=== PATIENT | male | born 1930 | race Caucasian/White ===

== ENCOUNTER 2016-07-16 09:23 | Observation (INO) | payer OTHER ==
[~2016-07-16] VITALS: Ht 175.3 cm; Wt 101.9 kg
[~2016-07-16 09:23] MED LIST: ACETAMINOPHEN500 MG PO; ATENOLOL50 M1 NG; ATENOLOL50 MG PO; AUGMENTIN875 MG PO; CEFDINIR300 MG PO; CRESTOR20 MG PO; CYANOCOBALAM1000 MCG PO; CYMBALTA60 MG PO; Cymbalta PO; DIOVAN160 MG PO; ECOTRIN325 MG PO; FLOMAX0.4 MG PO; Flomax PO; GLIPIZIDE XL10 MG PO; GLIPIZIDE10 M1 PO; GLIPIZIDE10 MG PO; HYDROCHLOROTH12.5 M1 PO; HYDROCHLOROTH12.5 M3 PO; IRBESARTAN300 MG PO; LANTUS (UNITS)1 UNIT SQ; LANTUS 10100 UNITS/ SC; LEVEMIR100 UNIT/2 SC; MYRBETRIQ50 MG PO; NORVASC5 MG PO; NOVOLOG 10100 UNITS/ SC; PLAVIX75 MG PO; PRILOSEC OTC20 MG PO; PRILOSEC10 MG PO; PROSCAR5 MG PO; Proscar PO; Tenormin PO; XELODA500 MG PO; ZOFRAN4 MG PO
[2016-07-16 10:28] LABS: HEMATOCRIT 48.2 % (38.0-50.0); MCH 26.9 PG (29.0-34.0); MCV 84.1 FL (86-99); MEAN PLAT.VOLUME 9.4 uM^3 (9.0-12.4); PLATELET COUNT 265 K/uL (156-360); RBC DIS.WIDTH-CV 15.3 % (11.8-14.6); RBC DIS.WIDTH-SD 46.8 % (39-53); RED BLOOD COUNT 5.73 M/uL (4.00-5.50); WHITE BLOOD COUNT 11.9 K/uL (4.1-10.2)
[2016-07-16 10:38] LABS: CHLORIDE 100 mEq/L (99-109); POTASSIUM 4.2 mEq/L (3.7-5.4); SODIUM 136 mEq/L (136-147)
[2016-07-16 10:40] LABS: GLUCOSE 191 mg/dL (70-99)
[2016-07-16 10:41] LABS: ANION GAP 12 MEQ/L (2-14)
[2016-07-16 10:44] LABS: GFR ESTIMATE (CALCULATED) > 59 mL/min/
[2016-07-16 10:45] LABS: UREA NITROGEN (BUN) 24 mg/dL (9-23)
[2016-07-16 10:48] LABS: TROP-I INTERPRETATION NEGATIVE; TROPONIN-I 0.02 ng/mL (0.0-0.30)
[2016-07-16 11:56] VITALS: BP 162/74
[2016-07-16] MEDS ORDERED: GLUCOTROL10 MG PO (12:55)
[2016-07-16] MEDS ORDERED: GLIPIZIDE XL10 MG PO (15:05)
[2016-07-16 15:34] VITALS: BP 155/76
[2016-07-16 16:11] VITALS: BP 105/51
[2016-07-16 17:00] LABS: POINT-OF-CARE METER ID UU13113700
[2016-07-16 18:51] LABS: TROP-I INTERPRETATION NEGATIVE; TROPONIN-I 0.03 ng/mL (0.0-0.30)
[2016-07-16 21:21] LABS: POINT-OF-CARE METER ID UU13113700
[2016-07-17] VITALS: BP 143/74
[2016-07-17 01:49] LABS: TROP-I INTERPRETATION NEGATIVE; TROPONIN-I 0.02 ng/mL (0.0-0.30)
[2016-07-17 04:20] VITALS: BP 182/97
[2016-07-17 06:33] LABS: HEMATOCRIT 44.3 % (38.0-50.0); MCH 27.6 PG (29.0-34.0); MCHC 32.1 G/DL (30.0-36.0); MEAN PLAT.VOLUME 9.8 uM^3 (9.0-12.4); PLATELET COUNT 235 K/uL (156-360); RBC DIS.WIDTH-CV 15.5 % (11.8-14.6); RBC DIS.WIDTH-SD 48.5 % (39-53); RED BLOOD COUNT 5.15 M/uL (4.00-5.50); WHITE BLOOD COUNT 9.3 K/uL (4.1-10.2)
[2016-07-17 07:48] VITALS: BP 135/63
[2016-07-17] MEDS ORDERED: BENZONATATE100 MG PO (07:56)
[2016-07-17] MEDS ORDERED: AZITHROMYCIN500 M1 PO (07:56)
[2016-07-17] MEDS ORDERED: CEFTIN500 MG PO (07:57)
[2016-07-17 08:05] LABS: POINT-OF-CARE METER ID UU13113831
[2016-07-17] MEDS ORDERED: ZOFRAN ODT4 MG PO (10:47)
== END 2016-07-17 13:18 | disposition home or self-care (01) ==
LOC: EME 09:23 → EDOF 10:55 → 5WEST 11:45
PROVIDERS: Internal Medicine
DX: R07.9 Chest pain, unspecified (principal); R05 Cough; R11.2 Nausea with vomiting, unspecified; R29.6 Repeated falls; R26.2 Difficulty in walking, not elsewhere classified; I25.10 Atherosclerotic heart disease of native coronary artery without angina pectoris; E11.40 Type 2 diabetes mellitus with diabetic neuropathy, unspecified; I44.0 Atrioventricular block, first degree; E78.5 Hyperlipidemia, unspecified; I10 Essential (primary) hypertension; F32.9 Major depressive disorder, single episode, unspecified; R32 Unspecified urinary incontinence; K21.9 Gastro-esophageal reflux disease without esophagitis; I45.10 Unspecified right bundle-branch block; N40.1 Benign prostatic hyperplasia with lower urinary tract symptoms; I25.2 Old myocardial infarction; Z86.73 Personal history of transient ischemic attack (TIA), and cerebral infarction without residual deficits; Z87.891 Personal history of nicotine dependence; Z79.4 Long term (current) use of insulin; Z95.1 Presence of aortocoronary bypass graft; Z95.5 Presence of coronary angioplasty implant and graft; Z85.038 Personal history of other malignant neoplasm of large intestine
CPT/HCPCS: 71020; 80048; 82948; 84484; 85027; 87040; 87070; 87205; 93005; 94799; 99281; 99285; G0378; G8987 GO CM; G8988 GO CL; J0696; J1650; J7030; J7050

== ENCOUNTER 2016-08-12 16:03 | Inpatient (IN) | payer OTHER ==
[~2016-08-12] VITALS: Ht 175.3 cm; Wt 100.6 kg
[~2016-08-12 16:03] MED LIST changes: +AZITHROMYCIN500 M1 PO; +BENZONATATE100 MG PO; +CEFTIN500 MG PO; +GLUCOTROL10 MG PO; +ZOFRAN ODT4 MG PO
[2016-08-12 17:46] LABS: BASOPHIL COUNT 0.1 K/uL (0-0.1); EOSINOPHIL (%) 1.2 % (0-5); EOSINOPHIL COUNT 0.1 K/uL (0-0.3); HEMATOCRIT 45.3 % (38.0-50.0); IMMATURE GRANULOCYTE (%) 0.5 % (0.0-0.7); IMMATURE GRANULOCYTE COUNT 0.1 K/uL; LYMPHOCYTE COUNT 2.3 K/uL (1.0-2.8); MCH 27.1 PG (29.0-34.0); MCHC 31.8 G/DL (30.0-36.0); MCV 85.3 FL (86-99); MEAN PLAT.VOLUME 9.4 uM^3 (9.0-12.4); MONOCYTE (%) 10.4 % (3-12); MONOCYTE COUNT 1.1 K/uL (0-0.8); NEUTROPHIL (%) 65.9 % (45-76); PLATELET COUNT 208 K/uL (156-360); RBC DIS.WIDTH-CV 17.2 % (11.8-14.6); RBC DIS.WIDTH-SD 53.2 % (39-53); RED BLOOD COUNT 5.31 M/uL (4.00-5.50); WHITE BLOOD COUNT 10.7 K/uL (4.1-10.2)
[2016-08-12 17:56] LABS: CHLORIDE 104 mEq/L (99-109); POTASSIUM 3.7 mEq/L (3.7-5.4); SODIUM 139 mEq/L (136-147)
[2016-08-12 17:57] LABS: POINT-OF-CARE METER ID UU14100415
[2016-08-12 17:58] LABS: GLUCOSE 138 mg/dL (70-99)
[2016-08-12 17:59] LABS: ANION GAP 10 MEQ/L (2-14)
[2016-08-12 18:00] LABS: TOTAL BILIRUBIN 1.1 mg/dL (0.0-1.0)
[2016-08-12 18:02] LABS: ALKALINE PHOSPHATASE 307 IU/L (3-129); GFR ESTIMATE (CALCULATED) > 59 mL/min/
[2016-08-12 18:03] LABS: UREA NITROGEN (BUN) 20 mg/dL (9-23)
[2016-08-12 18:05] LABS: CREATINE KINASE 36 IU/L (1-294); TOTAL CK 36 IU/L (1-294)
[2016-08-12 18:07] LABS: TROP-I INTERPRETATION NEGATIVE; TROPONIN-I < 0.01 ng/mL (0.0-0.30)
[2016-08-12 18:11] LABS: ADD MIUA? YES; BILIRUBIN NEGATIVE; BLOOD NEGATIVE; COLOR AMBER ((YELLOW)); GLUCOSE (STRIP) NEGATIVE; KETONES NEGATIVE; LEUKOCYTES NEGATIVE; NITRITE NEGATIVE; PROTEIN (STRIP) >=500; SPECIFIC GRAVITY 1.019 (1.000-1.030)
[2016-08-12 18:20] LABS: BACTERIA RARE /HPF; EPITHELIAL CELLS RARE /HPF; GRANULAR CASTS 0-5 /LPF; HYALINE CASTS 0-5 /LPF; MUCUS TRACE /LPF; RED BLOOD CELLS 40-50 /HPF (0-5); UCUL ADDED? NO
[2016-08-12 18:57] LABS: C-REACTIVE PROTEIN 31.7 MG/L (0-10); SAMPLE HEMOLYSIS CHECK 0; SAMPLE ICTERIC CHECK 0; SAMPLE LIPEMIA CHECK 0
[2016-08-12 19:01] LABS: ERTH.SED.RATE 79 MM/HR (0-20)
[2016-08-12] MEDS ORDERED: PROBIOTIC-10 370 MG PO (20:30)
[2016-08-12] MEDS ORDERED: NEXIUM40 MG PO (20:30)
[2016-08-13 02:56] VITALS: BP 123/62
[2016-08-13 06:59] LABS: HEMATOCRIT 41.8 % (38.0-50.0); MCHC 32.3 G/DL (30.0-36.0); MCV 86.5 FL (86-99); MEAN PLAT.VOLUME 11.1 uM^3 (9.0-12.4); NRBC (%) 0.4 /100 WBC (0-0); PLATELET COUNT 208 K/uL (156-360); RBC DIS.WIDTH-CV 17.4 % (11.8-14.6); RBC DIS.WIDTH-SD 55.6 % (39-53); RED BLOOD COUNT 4.83 M/uL (4.00-5.50); WHITE BLOOD COUNT 7.1 K/uL (4.1-10.2)
[2016-08-13 07:16] VITALS: BP 152/72
[2016-08-13 07:20] LABS: ALKALINE PHOSPHATASE 271 IU/L (3-129); ANION GAP 8 MEQ/L (2-14); CHLORIDE 106 MEQ/L (99-109); GFR ESTIMATE (CALCULATED) > 59 mL/min/; GLUCOSE 121 mg/dL (70-99); POTASSIUM 3.5 MEQ/L (3.7-5.4); SAMPLE HEMOLYSIS CHECK 0; SAMPLE ICTERIC CHECK 0; SAMPLE LIPEMIA CHECK 0; SODIUM 139 MEQ/L (136-147); TOTAL BILIRUBIN 0.9 MG/DL (0.0-1.0); UREA NITROGEN (BUN) 19 mg/dL (9-23)
[2016-08-13 11:20] VITALS: BP 140/69
[2016-08-13 11:37] LABS: POINT-OF-CARE METER ID UU13113725
[2016-08-13 15:59] VITALS: BP 129/64
[2016-08-13 20:00] VITALS: BP 158/70
[2016-08-13 20:05] VITALS: BP 158/70
[2016-08-14 00:14] VITALS: BP 121/66
[2016-08-14 04:21] VITALS: BP 133/60
[2016-08-14 06:55] VITALS: BP 121/66
[2016-08-14 07:18] LABS: MCH 27.1 PG (29.0-34.0); MCHC 31.2 G/DL (30.0-36.0); MCV 86.8 FL (86-99); MEAN PLAT.VOLUME 9.8 uM^3 (9.0-12.4); PLATELET COUNT 176 K/uL (156-360); RBC DIS.WIDTH-CV 17.2 % (11.8-14.6); RBC DIS.WIDTH-SD 55.7 % (39-53); RED BLOOD COUNT 4.84 M/uL (4.00-5.50); WHITE BLOOD COUNT 7.6 K/uL (4.1-10.2)
[2016-08-14 08:24] LABS: ALKALINE PHOSPHATASE 266 IU/L (3-129); ANION GAP 10 MEQ/L (2-14); CHLORIDE 108 MEQ/L (99-109); GFR ESTIMATE (CALCULATED) > 59 mL/min/; POTASSIUM 3.7 MEQ/L (3.7-5.4); SAMPLE HEMOLYSIS CHECK 0; SAMPLE ICTERIC CHECK 0; SAMPLE LIPEMIA CHECK 0; SODIUM 139 MEQ/L (136-147); TOTAL BILIRUBIN 0.8 MG/DL (0.0-1.0); UREA NITROGEN (BUN) 18 mg/dL (9-23)
[2016-08-14 08:25] LABS: GLUCOSE 89 mg/dL (70-99)
[2016-08-14 11:10] VITALS: BP 133/60
[2016-08-14 11:42] LABS: POINT-OF-CARE METER ID UU13113725
[2016-08-14 20:15] VITALS: BP 135/65
[2016-08-14 22:07] LABS: POINT-OF-CARE METER ID UU13113725
[2016-08-15 00:13] VITALS: BP 135/65
[2016-08-15 04:30] VITALS: BP 137/77
[2016-08-15 07:17] VITALS: BP 141/67
[2016-08-15 07:34] LABS: HEMATOCRIT 43.6 % (38.0-50.0); MCH 27.6 PG (29.0-34.0); MCHC 31.9 G/DL (30.0-36.0); MCV 86.7 FL (86-99); MEAN PLAT.VOLUME 9.6 uM^3 (9.0-12.4); PLATELET COUNT 182 K/uL (156-360); RBC DIS.WIDTH-CV 17.8 % (11.8-14.6); RBC DIS.WIDTH-SD 55.8 % (39-53); RED BLOOD COUNT 5.03 M/uL (4.00-5.50); WHITE BLOOD COUNT 8.2 K/uL (4.1-10.2)
[2016-08-15 07:51] LABS: ALKALINE PHOSPHATASE 273 IU/L (3-129); ANION GAP 8 MEQ/L (2-14); CHLORIDE 106 MEQ/L (99-109); GFR ESTIMATE (CALCULATED) > 59 mL/min/; POTASSIUM 3.7 MEQ/L (3.7-5.4); SAMPLE HEMOLYSIS CHECK 0; SAMPLE ICTERIC CHECK 0; SAMPLE LIPEMIA CHECK 0; SODIUM 138 MEQ/L (136-147); UREA NITROGEN (BUN) 18 mg/dL (9-23)
[2016-08-15 07:53] LABS: GLUCOSE 174 mg/dL (70-99)
[2016-08-15 11:00] VITALS: BP 136/68
[2016-08-15 15:10] VITALS: BP 138/65
[2016-08-15 21:57] LABS: POINT-OF-CARE METER ID UU13113725
[2016-08-15 23:09] VITALS: BP 120/59
[2016-08-16 05:52] LABS: HEMATOCRIT 42.8 % (38.0-50.0); MCH 27.1 PG (29.0-34.0); MCHC 31.3 G/DL (30.0-36.0); MCV 86.5 FL (86-99); MEAN PLAT.VOLUME 9.6 uM^3 (9.0-12.4); PLATELET COUNT 167 K/uL (156-360); RBC DIS.WIDTH-CV 17.3 % (11.8-14.6); RBC DIS.WIDTH-SD 54.8 % (39-53); RED BLOOD COUNT 4.95 M/uL (4.00-5.50); WHITE BLOOD COUNT 7.9 K/uL (4.1-10.2)
[2016-08-16 06:18] LABS: ALKALINE PHOSPHATASE 249 IU/L (3-129); ANION GAP 7 MEQ/L (2-14); CHLORIDE 107 MEQ/L (99-109); GFR ESTIMATE (CALCULATED) > 59 mL/min/; GLUCOSE 160 mg/dL (70-99); POTASSIUM 3.3 MEQ/L (3.7-5.4); SAMPLE HEMOLYSIS CHECK 0; SAMPLE ICTERIC CHECK 0; SAMPLE LIPEMIA CHECK 0; SODIUM 138 MEQ/L (136-147); TOTAL BILIRUBIN 0.9 MG/DL (0.0-1.0); UREA NITROGEN (BUN) 17 mg/dL (9-23)
[2016-08-16 07:11] VITALS: BP 141/66
[2016-08-16 17:06] VITALS: BP 158/74
[2016-08-16 20:46] LABS: POINT-OF-CARE METER ID UU13113725
[2016-08-16 22:54] VITALS: BP 146/70
[2016-08-17 06:48] LABS: HEMATOCRIT 41.6 % (38.0-50.0); MCH 26.7 PG (29.0-34.0); MCHC 31.3 G/DL (30.0-36.0); MCV 85.4 FL (86-99); MEAN PLAT.VOLUME 9.4 uM^3 (9.0-12.4); PLATELET COUNT 180 K/uL (156-360); RBC DIS.WIDTH-CV 17.2 % (11.8-14.6); RBC DIS.WIDTH-SD 53.5 % (39-53); RED BLOOD COUNT 4.87 M/uL (4.00-5.50); WHITE BLOOD COUNT 8.1 K/uL (4.1-10.2)
[2016-08-17] MEDS ORDERED: DOXYCYCLINE HY100 M3 PO (07:01)
[2016-08-17] MEDS ORDERED: LEVEMIR100 UNIT/2 SC (07:02)
[2016-08-17] MEDS ORDERED: NOVOLOG PE100 UNITS/ SC (07:02)
[2016-08-17 07:08] VITALS: BP 147/76
[2016-08-17 07:21] LABS: ALKALINE PHOSPHATASE 231 IU/L (3-129); ANION GAP 8 MEQ/L (2-14); CHLORIDE 107 MEQ/L (99-109); GFR ESTIMATE (CALCULATED) > 59 mL/min/; POTASSIUM 3.2 MEQ/L (3.7-5.4); SAMPLE HEMOLYSIS CHECK 0; SAMPLE ICTERIC CHECK 0; SAMPLE LIPEMIA CHECK 0; SODIUM 141 MEQ/L (136-147); TOTAL BILIRUBIN 0.9 MG/DL (0.0-1.0); UREA NITROGEN (BUN) 17 mg/dL (9-23)
[2016-08-17 07:22] LABS: GLUCOSE 118 mg/dL (70-99)
== END 2016-08-17 11:47 | DRG 195 ==
LOC: EME 16:03 → EDOF 19:34 → 5EAST 19:34
PROVIDERS: Emergency Medicine; Internal Medicine
DX: J18.9 Pneumonia, unspecified organism (principal); E11.649 Type 2 diabetes mellitus with hypoglycemia without coma; R26.2 Difficulty in walking, not elsewhere classified; R54 Age-related physical debility; E78.5 Hyperlipidemia, unspecified; I10 Essential (primary) hypertension; I25.10 Atherosclerotic heart disease of native coronary artery without angina pectoris; K21.9 Gastro-esophageal reflux disease without esophagitis; Z66 Do not resuscitate; I25.2 Old myocardial infarction; Z85.038 Personal history of other malignant neoplasm of large intestine; Z86.73 Personal history of transient ischemic attack (TIA), and cerebral infarction without residual deficits; Z95.1 Presence of aortocoronary bypass graft; Z87.891 Personal history of nicotine dependence; Z79.84 Long term (current) use of oral hypoglycemic drugs; Z79.4 Long term (current) use of insulin
CPT/HCPCS: 70450; 71020; 80053; 81003; 82550; 82553; 82948; 84484; 85025; 85027; 85651; 86140; 87040; 93005; 94799; 97530 GO; 97530 GP; 99281; 99284; J1650; J1815; J7030; J7050

== ENCOUNTER 2016-08-27 14:23 | Inpatient (IN) | payer OTHER ==
[~2016-08-27] VITALS: Ht 175.3 cm; Wt 110.6 kg
[~2016-08-27 14:23] MED LIST changes: +DOXYCYCLINE HY100 M3 PO; +NEXIUM40 MG PO; +NOVOLOG PE100 UNITS/ SC; +PROBIOTIC-10 370 MG PO
[2016-08-27 15:33] LABS: EOSINOPHIL (%) 0.1 % (0-5); HEMATOCRIT 45.4 % (38.0-50.0); IMMATURE GRANULOCYTE (%) 0.8 % (0.0-0.7); IMMATURE GRANULOCYTE COUNT 0.2 K/uL; INSTRUMENT ABS NEUTROPHIL CT 15.8 K/uL; MCH 27.3 PG (29.0-34.0); MCHC 31.7 G/DL (30.0-36.0); MEAN PLAT.VOLUME 10.5 uM^3 (9.0-12.4); MONOCYTE (%) 9.4 % (3-12); NEUTROPHIL (%) 75.2 % (45-76); NEUTROPHIL COUNT 15.8 K/uL (1.8-6.4); RBC DIS.WIDTH-CV 18.7 % (11.8-14.6); RBC DIS.WIDTH-SD 56.7 % (39-53); RED BLOOD COUNT 5.28 M/uL (4.00-5.50)
[2016-08-27 15:44] LABS: CHLORIDE 102 mEq/L (99-109); POTASSIUM 3.5 mEq/L (3.7-5.4); SODIUM 138 mEq/L (136-147)
[2016-08-27 15:47] LABS: GLUCOSE 86 mg/dL (70-99)
[2016-08-27 15:48] LABS: ANION GAP 12 MEQ/L (2-14); TOTAL BILIRUBIN 2.4 mg/dL (0.0-1.0)
[2016-08-27 15:50] LABS: ALKALINE PHOSPHATASE 299 IU/L (3-129); GFR ESTIMATE (CALCULATED) 47 mL/min/
[2016-08-27 15:51] LABS: UREA NITROGEN (BUN) 55 mg/dL (9-23)
[2016-08-27 15:56] LABS: TROP-I INTERPRETATION NEGATIVE; TROPONIN-I 0.05 ng/mL (0.0-0.30)
[2016-08-27 15:57] LABS: PLATELET COUNT 250 K/uL (156-360)
[2016-08-27] MEDS ORDERED: FLORASTOR250 MG PO (18:08)
[2016-08-27] MEDS ORDERED: NOVOLOG PE100 UNITS/ SC (18:09)
[2016-08-27] MEDS ORDERED: SINEMET 25-1001 EACH PO (18:10)
[2016-08-27] MEDS ORDERED: LIPITOR40 MG PO (18:11)
[2016-08-27] MEDS ORDERED: OMEPRAZOLE20 MG PO (18:11)
[2016-08-27] MEDS ORDERED: BASAGLAR K100 UNIT/1 SC (18:11)
[2016-08-27] MEDS ORDERED: LOSARTAN POTAS100 MG PO (18:11)
[2016-08-27] MEDS ORDERED: HUMALOG100 UNIT/2 SC (18:12)
[2016-08-27] MEDS ORDERED: HYDROCHLOROTH12.5 M3 PO (18:12)
[2016-08-27] MEDS ORDERED: DULCOLAX10 MG PR (18:13)
[2016-08-27] MEDS ORDERED: PHILLIPS'400 MG/5 M PO (18:13)
[2016-08-27] MEDS ORDERED: FLEET ENEMA-AD118 ML PR (18:13)
[2016-08-27 23:13] LABS: INTER. NORMALIZED RATIO 1.5; PROTHROMBIN TIME 15.3 (9.2-11.2); PTT 29.9 (25-32)
[2016-08-27 23:29] LABS: TROP-I INTERPRETATION NEGATIVE; TROPONIN-I 0.06 ng/mL (0.0-0.30)
[2016-08-28] VITALS (15 sets, daily range): BP systolic 76–117; BP diastolic 51–72
[2016-08-28 01:07] LABS: POINT-OF-CARE METER ID UU13113747
[2016-08-28 02:23] LABS: ADD MIUA? YES; BILIRUBIN NEGATIVE; BLOOD SMALL; COLOR AMBER ((YELLOW)); GLUCOSE (STRIP) NEGATIVE; KETONES NEGATIVE; LEUKOCYTES MODERATE; NITRITE NEGATIVE; PROTEIN (STRIP) 30; SPECIFIC GRAVITY 1.015 (1.000-1.030)
[2016-08-28 02:57] LABS: BACTERIA 2+ /HPF; CASTS PRESENT /LPF; EPITHELIAL CELLS 1+ /HPF; MUCUS 1+ /LPF; RED BLOOD CELLS 15-20 /HPF (0-5); UCUL ADDED? YES
[2016-08-28 02:58] LABS: COARSE GRANULAR CASTS RARE /LPF; CRYSTALS NONE SEEN
[2016-08-28 03:13] LABS: POINT-OF-CARE METER ID UU13113747
[2016-08-28 05:43] LABS: TROP-I INTERPRETATION NEGATIVE; TROPONIN-I 0.08 ng/mL (0.0-0.30)
[2016-08-28 06:20] LABS: POINT-OF-CARE METER ID UU13113747
[2016-08-28 07:33] LABS: C DIFF TOXIN NEGATIVE (NEGATIVE)
[2016-08-28 07:35] LABS: PROBE CHECK PASS; SPECIMEN PROCESSING CONTROL PASS
[2016-08-28 08:13] LABS: EOSINOPHIL (%) 0.2 % (0-5); HEMATOCRIT 43.3 % (38.0-50.0); IMMATURE GRANULOCYTE (%) 0.7 % (0.0-0.7); IMMATURE GRANULOCYTE COUNT 0.1 K/uL; INSTRUMENT ABS NEUTROPHIL CT 11.1 K/uL; LYMPHOCYTE COUNT 2.5 K/uL (1.0-2.8); MCH 27.1 PG (29.0-34.0); MCHC 31.9 G/DL (30.0-36.0); MCV 84.9 FL (86-99); MEAN PLAT.VOLUME 10.4 uM^3 (9.0-12.4); MONOCYTE COUNT 1.5 K/uL (0-0.8); NEUTROPHIL (%) 72.6 % (45-76); NEUTROPHIL COUNT 11.1 K/uL (1.8-6.4); PLATELET COUNT 207 K/uL (156-360); RBC DIS.WIDTH-CV 18.1 % (11.8-14.6); RBC DIS.WIDTH-SD 54.9 % (39-53); WHITE BLOOD COUNT 15.3 K/uL (4.1-10.2)
[2016-08-28 08:30] LABS: CHLORIDE 104 mEq/L (99-109); POTASSIUM 3.5 mEq/L (3.7-5.4); SODIUM 139 mEq/L (136-147)
[2016-08-28 08:33] LABS: ANION GAP 12 MEQ/L (2-14); GLUCOSE 116 mg/dL (70-99)
[2016-08-28 08:34] LABS: TOTAL BILIRUBIN 1.9 mg/dL (0.0-1.0)
[2016-08-28 08:35] LABS: ALKALINE PHOSPHATASE 288 IU/L (3-129)
[2016-08-28 08:36] LABS: GFR ESTIMATE (CALCULATED) 47 mL/min/
[2016-08-28 08:37] LABS: UREA NITROGEN (BUN) 57 mg/dL (9-23)
[2016-08-28 08:57] LABS: INTERNAL CONTROL VALID? YES
[2016-08-28 12:06] LABS: POINT-OF-CARE METER ID UU13113747
[2016-08-28 16:19] LABS: POINT-OF-CARE METER ID UU14162508
[2016-08-28 21:24] LABS: POINT-OF-CARE METER ID UU14162508
[2016-08-29 03:42] VITALS: BP 107/57
[2016-08-29 06:46] LABS: POINT-OF-CARE METER ID UU14162508
[2016-08-29 07:12] LABS: POINT-OF-CARE METER ID UU14162508
[2016-08-29 08:31] VITALS: BP 109/55
[2016-08-29 11:26] VITALS: BP 103/59
[2016-08-29 11:47] LABS: POINT-OF-CARE METER ID UU14162508
[2016-08-29 15:01] LABS: HEMATOCRIT 47.1 % (38.0-50.0); MCH 27.2 PG (29.0-34.0); MCHC 31.6 G/DL (30.0-36.0); MCV 86.1 FL (86-99); MEAN PLAT.VOLUME 9.9 uM^3 (9.0-12.4); NRBC (%) 0.1 /100 WBC (0-0); RBC DIS.WIDTH-CV 18.7 % (11.8-14.6); RBC DIS.WIDTH-SD 56.8 % (39-53); RED BLOOD COUNT 5.47 M/uL (4.00-5.50); WHITE BLOOD COUNT 14.5 K/uL (4.1-10.2)
[2016-08-29 15:02] LABS: PLATELET COUNT 288 K/uL (156-360)
[2016-08-29 15:25] LABS: ALKALINE PHOSPHATASE 328 IU/L (3-129); ANION GAP 11 MEQ/L (2-14); CHLORIDE 101 MEQ/L (99-109); GFR ESTIMATE (CALCULATED) 38 mL/min/; POTASSIUM 3.7 MEQ/L (3.7-5.4); SAMPLE HEMOLYSIS CHECK 0; SAMPLE ICTERIC CHECK 0; SAMPLE LIPEMIA CHECK 0; SODIUM 138 MEQ/L (136-147); TOTAL BILIRUBIN 1.8 MG/DL (0.0-1.0); UREA NITROGEN (BUN) 71 mg/dL (9-23)
[2016-08-29 15:34] LABS: GLUCOSE 86 mg/dL (70-99)
[2016-08-29 16:15] VITALS: BP 90/55
[2016-08-29 16:36] LABS: POINT-OF-CARE METER ID UU14162508
[2016-08-29 16:46] LABS: POINT-OF-CARE METER ID UU14162508
[2016-08-29 19:31] VITALS: BP 100/58
[2016-08-29 20:50] LABS: POINT-OF-CARE METER ID UU14162508
[2016-08-29 23:39] VITALS: BP 113/53
[2016-08-30 04:24] VITALS: BP 96/53
[2016-08-30 07:04] LABS: HEMATOCRIT 45.5 % (38.0-50.0); MCH 26.8 PG (29.0-34.0); MCHC 31.6 G/DL (30.0-36.0); MCV 84.7 FL (86-99); MEAN PLAT.VOLUME 9.9 uM^3 (9.0-12.4); PLATELET COUNT 311 K/uL (156-360); RBC DIS.WIDTH-CV 18.7 % (11.8-14.6); RBC DIS.WIDTH-SD 55.5 % (39-53); RED BLOOD COUNT 5.37 M/uL (4.00-5.50); WHITE BLOOD COUNT 14.7 K/uL (4.1-10.2)
[2016-08-30 07:27] LABS: ALKALINE PHOSPHATASE 348 IU/L (3-129); ANION GAP 13 MEQ/L (2-14); CHLORIDE 102 MEQ/L (99-109); GFR ESTIMATE (CALCULATED) 34 mL/min/; GLUCOSE 86 mg/dL (70-99); POTASSIUM 3.8 MEQ/L (3.7-5.4); SAMPLE HEMOLYSIS CHECK 0; SAMPLE ICTERIC CHECK 0; SAMPLE LIPEMIA CHECK 0; SODIUM 140 MEQ/L (136-147); TOTAL BILIRUBIN 1.7 MG/DL (0.0-1.0); UREA NITROGEN (BUN) 75 mg/dL (9-23)
[2016-08-30 07:45] VITALS: BP 125/72
[2016-08-30 11:20] VITALS: BP 118/66
[2016-08-30 15:42] VITALS: BP 111/69
[2016-08-30 20:54] VITALS: BP 107/59
[2016-08-30 23:49] VITALS: BP 115/58
[2016-08-31 04:41] VITALS: BP 113/55
[2016-08-31 07:40] VITALS: BP 107/59
[2016-08-31 07:41] LABS: HEMATOCRIT 48.7 % (38.0-50.0); MCH 27.1 PG (29.0-34.0); MCHC 31.6 G/DL (30.0-36.0); MCV 85.7 FL (86-99); MEAN PLAT.VOLUME 10.2 uM^3 (9.0-12.4); NRBC (%) 0.2 /100 WBC (0-0); PLATELET COUNT 276 K/uL (156-360); RBC DIS.WIDTH-CV 19.3 % (11.8-14.6); RBC DIS.WIDTH-SD 56.8 % (39-53); RED BLOOD COUNT 5.68 M/uL (4.00-5.50)
[2016-08-31 08:06] LABS: ALKALINE PHOSPHATASE 378 IU/L (3-129); ANION GAP 19 MEQ/L (2-14); CHLORIDE 104 MEQ/L (99-109); GFR ESTIMATE (CALCULATED) 29 mL/min/; GLUCOSE 124 mg/dL (70-99); SAMPLE HEMOLYSIS CHECK 2; SAMPLE ICTERIC CHECK 0; SAMPLE LIPEMIA CHECK 0; SODIUM 142 MEQ/L (136-147); UREA NITROGEN (BUN) 87 mg/dL (9-23)
[2016-08-31 08:07] LABS: TOTAL BILIRUBIN 2.5 MG/DL (0.0-1.0)
[2016-08-31 10:13] LABS: POTASSIUM 4.9 MEQ/L (3.7-5.4)
[2016-08-31 10:18] LABS: NO-CHARGE AST (GOT) 237 IU/L (15-37)
[2016-08-31 12:00] VITALS: BP 86/52
[2016-08-31 14:17] VITALS: BP 71/54
[2016-08-31 20:55] VITALS: BP 0/0
[2016-09-02 23:45] LABS: AP Bone Isoenzyme 12 % (28-66); AP Intestine Isoenzyme 0 % (1-24); AP Liver Isoenzyme 62 % (25-69); AP Macrohepatic Isoenzyme 26 % (<=0); AP Placental Isoenzyme 0 % (<=0); Alkaline Phosphatase, Total 313 U/L (40-115)
== END 2016-08-31 23:18 | DRG 288 ==
LOC: EME 14:23 → EDOF 22:15 → 2EAST 22:15 → EDOF 08-28 09:02 → 2EAST 08-28 15:09
PROVIDERS: Emergency Medicine; Internal Medicine
DX: I33.0 Acute and subacute infective endocarditis (principal); J18.9 Pneumonia, unspecified organism; N39.0 Urinary tract infection, site not specified; B95.2 Enterococcus as the cause of diseases classified elsewhere; Y95 Nosocomial condition; N17.9 Acute kidney failure, unspecified; G93.41 Metabolic encephalopathy; I95.9 Hypotension, unspecified; R09.02 Hypoxemia; I44.0 Atrioventricular block, first degree; R18.8 Other ascites; I10 Essential (primary) hypertension; R32 Unspecified urinary incontinence; E66.9 Obesity, unspecified; I25.10 Atherosclerotic heart disease of native coronary artery without angina pectoris; G20 Parkinson's disease; E78.5 Hyperlipidemia, unspecified; E11.9 Type 2 diabetes mellitus without complications; K21.9 Gastro-esophageal reflux disease without esophagitis; Z66 Do not resuscitate; Z51.5 Encounter for palliative care; I25.2 Old myocardial infarction; Z85.038 Personal history of other malignant neoplasm of large intestine; Z68.36 Body mass index [BMI] 36.0-36.9, adult; Z86.73 Personal history of transient ischemic attack (TIA), and cerebral infarction without residual deficits; Z90.49 Acquired absence of other specified parts of digestive tract; Z95.5 Presence of coronary angioplasty implant and graft; Z95.1 Presence of aortocoronary bypass graft; Z87.891 Personal history of nicotine dependence; Z79.4 Long term (current) use of insulin
CPT/HCPCS: 36415; 71010; 71250; 74176; 80048; 80053; 81003; 82140; 82948; 83605; 83880; 84075 90; 84080 90; 84484; 84999; 85025; 85027; 85610; 85730; 87040; 87070; 87077; 87086; 87186; 87205; 87449; 87493; 93005; 93306; 94799; 99281; 99285; J0295; J0696; J1644; J1815; J1940; J2270; J7030; J7040; J7050